=== PATIENT | female | born 1950 | race Caucasian/White ===

== ENCOUNTER → 2016-05-12 | Day surgery (SDC) | payer OTHER, MEDICARE ==
[~2016-05-12] VITALS: Ht 149.9 cm; Wt 50.3 kg
--- NOTE | 2016-05-12 14:41 | Operative Report ---
Operative/Inv Procedure Report Surgery Date: 05/12/16 Name of Procedure: 1. Exam under anesthesia with anal block 2. Transanal hemorrhoidal dearterialization 3 quadrants 3. Right lateral mucopexy Pre-Operative Diagnosis: Grade 3 internal hemorrhoids Post-Operative Diagnosis: Same Estimated Blood Loss: less than 50ml Surgeon/Manager Qa: JACOBO VILLAGOMEZ MD Anesthesia: general endotracheal tube Specimens: None Complications: None Condition: Stable to recovery room Operative Indication: Patient is a 66-year-old woman who presents for transanal hemorrhoidal dearterialization due to hemorrhoidal exacerbations and bleeding. All risks benefits and alternatives of procedure explained to patient detail, and she expressed understanding and agreement with the same. Operative/Procedure Note Note: Patient was taken to the operating room. Bilateral lower extremity SCDs were placed. Gen. endotracheal anesthesia was established by anesthesia team. The patient was placed on the operating table in the prone jackknife position. Buttocks were taped apart. All appropriate pressure points were padded, and the patient was secured to the operating table. The perineum was prepped and draped in the standard surgical fashion. The timeout was carried out. Anal block was administered with 20 mL of 1% lidocaine. On anoscopy, patient had prominent right anterior right posterior and left lateral hemorrhoidal pedicles. The Doppler ultrasound device was connected to the anus scope and inserted into the anus. The right anterior hemorrhoidal pedicle was identified with ultrasound guidance. Vicryl suture was used at the base of the pedicle and secured in place. It was used in the running fashion on the entire length of the hemorrhoidal pedicle up to the dentate line. Both ends of the suture were tied together, thus pexying the pedicle. The ultrasound was used to identify the right superior hemorrhoidal pedicle and left lateral hemorrhoidal pedicle that were pexied with 2-0 Vicryl sutures in the similar fashion. Patient also had small hemorrhoid in the right lateral position, that was pexied without him ultrasound guidance. Anal canal was checked for hemostasis. Gelfoam was inserted within the anal canal. Exparel was administered for shelter local analgesia. The sponge and instrument counts were correct in the end of procedure. The patient tolerated procedure well. There were no complications. The patient was wakened up and taken to recovery room in stable condition. Findings: right anterior and posterior and left lateral grade III internal hemorrhoids right lateral grade II internal hemorrhoid Discharge Disposition: home
== END ==
LOC: STS 05-11 07:00
DX: K64.2 Third degree hemorrhoids (principal); K58.9 Irritable bowel syndrome, unspecified; M19.90 Unspecified osteoarthritis, unspecified site; Z79.82 Long term (current) use of aspirin
CPT/HCPCS: C9290; J1580; J2250